=== PATIENT | male | born 1960 | race Hispanic/Latino ===

== ENCOUNTER 2018-07-10 15:13 | Emergency (ER) | payer SELFPAY ==
[2018-07-10 15:50] LABS: #Eosinphils 0.2 thou/uL (0.0-0.7); #Lymphocytes 2.5 thou/uL (1.20-3.40); #Monocytes 0.3 thou/uL (0.11-0.59); #Neutrophils 2.4 thou/uL (1.40-6.50); %Basophils 0.9 % (0.0-1.0); %Eosinophils 3.9 % (0.0-10.0); %Lymphocytes 45.4 % (21.0-51.0); %Monocytes 5.8 % (0.0-10.0); %Neutrophils 44.1 % (42.0-75.0); Hemoglobin 15.4 g/dL (14.0-18.0); Mean Corpuscular HGB CONC 35.6 g/dL (32.0-36.0); Mean Corpuscular Volume 86.9 fL (78.0-98.0); Mean Platelet Volume 7.6 fL (7.4-10.4); Platelet Count 195 thou/uL (130-400); RBC Distribution Width 11.6 % (11.5-14.5); Red Blood Cell (RBC) Count 4.98 mill/uL (4.70-6.10); White Blood Cell (WBC) Count 5.5 thou/uL (4.8-10.8)
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
[2018-07-10 16:14] LABS: Sodium 142 mmol/L (136-145)
[2018-07-10 16:15] LABS: Calcium 10.1 mg/dL (7.8-10.44); Chloride 106 mmol/L (98-107); Glucose 101 mg/dL (70-105); Potassium 4.6 mmol/L (3.5-5.1)
[2018-07-10 16:19] LABS: Anion Gap 16 mmol/L (10-20); BUN (Urea Nitrogen) 13 mg/dL (8.4-25.7); Bilirubin, Total 0.7 mg/dL (0.2-1.2); Calc. Creatinine Clearance 0 mL/min (70-130); Carbon Dioxide 25 mmol/L (22-29); Estimated GFR-MDRD 87
[2018-07-10 16:20] LABS: AST (SGOT) 36 U/L (5-34); Albumin 4.7 g/dL (3.5-5.0); Alkaline Phosphatase 101 U/L (40-150); Globulin 2.6 g/dL (2.4-3.5); Protein, Total 7.3 g/dL (6.0-8.3)
[2018-07-10 16:21] LABS: ALT (SGPT) 72 U/L (8-55)
== END 2018-07-10 16:57 | disposition home or self-care (01) ==
LOC: ERS 15:13
DX: S16.1XXA Strain of muscle, fascia and tendon at neck level, initial encounter (principal); S29.012A Strain of muscle and tendon of back wall of thorax, initial encounter; V59.40XA Driver of pick-up truck or van injured in collision with unspecified motor vehicles in traffic accident, initial encounter
CPT/HCPCS: 72072; 72100; 72125; 80053; 85025; G0390